=== PATIENT | female | born 1965 | race African-American/Black ===

== ENCOUNTER → 2017-01-08 | Outpatient (CLI) | payer OTHER | END | disposition home or self-care (01) | LOC: CFH 09:03 | PROVIDERS: ATTEND Internal Medicine | DX: Z12.31 Encounter for screening mammogram for malignant neoplasm of breast (principal); N63 Unspecified lump in breast | CPT/HCPCS: G0202 ==

== ENCOUNTER → 2017-01-22 | Outpatient (CLI) | payer OTHER | END | disposition home or self-care (01) | LOC: CFH 07:19 | PROVIDERS: ATTEND Internal Medicine | DX: N63 Unspecified lump in breast (principal); N64.89 Other specified disorders of breast | CPT/HCPCS: 76642; G0204 ==